=== PATIENT | male | born 1980 | race Two or more races ===

== ENCOUNTER 2017-04-28 21:27 | Emergency (ER) | payer OTHER ==
[~2017-04-28] VITALS: Ht 172.7 cm; Wt 70.3 kg
[2017-04-28 22:10] VITALS: BP 149/87
[2017-04-28] MEDS ORDERED: NKM (22:13)
[2017-04-28 22:15] VITALS: BP 149/87
[2017-04-28] MEDS ORDERED: IBUPROFEN600 MG ORAL (22:46)
[2017-04-28 22:54] VITALS: BP 134/83
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
== END 2017-04-28 22:54 | disposition home or self-care (01) ==
LOC: EMR 22:27
DX: S16.1XXA Strain of muscle, fascia and tendon at neck level, initial encounter (principal); S00.93XA Contusion of unspecified part of head, initial encounter; V43.52XA Car driver injured in collision with other type car in traffic accident, initial encounter; Y92.411 Interstate highway as the place of occurrence of the external cause
CPT/HCPCS: 99283